=== PATIENT | male | born 1945 | race Caucasian/White ===

== ENCOUNTER → 2019-03-21 | Outpatient (CLI) | payer MEDICARE, OTHER ==
--- NOTE | 2019-04-09 09:06 | PATH ---
[address] [address] PATHOLOGY RPT PROCEDURE Name: JAMAR BRYAN DAYANARA Room: [facility] JENY Nowak#: [id number] Admission: 03/21/19 Date of : 41 Discharge: Report #: [id number] Path Case #: [id number] [facility] Accession Number: [id number] . 01 Material submitted: . lymph node - RIGHT CERVICAL LYMPH NODE MID NECK. Modifiers: right, mid, neck . 01 Clinician provided ICD-10: C44.42:C82.91 . 01 Clinical history: . 2.25 x 2.0 x 1.34 cm Separate specimen submitted for flow cytometric . 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 Please see comment. . Surgical Pathology Cancer Case Summary NON-HODGKIN LYMPHOMA/LYMPHOID NEOPLASMS: Biopsy . Specimen ___ Lymph node Procedure ___ Biopsy Tumor Site ___ Lymph node Specify site: Right cervical . Histologic Type Mature B-Cell Neoplasms ___ Follicular lymphoma with large B-cell lymphoma . Immunophenotyping ___ Performed, see separate report: Flow cytometry findings [facility], specimen ID [id number] ___ Performed Specify method and results: Immunohistochemical stains, please see comment + Cytogenetic Studies + ___ Not performed + Molecular Genetic Studies + ___ Not performed (ASHLEY/becky; 03/26/19) . [place] [address] PATHOLOGY RPT PROCEDURE Name: JAMAR BRYAN DAYANARA Room: [facility]#: [id number] Admission: 03/21/19 Date of : 41 Discharge: Report #: [id number] Path Case #: [id number] Special studies report received from [facility], [address] [place] [address], [facility] [address], [place], [address], on case [id number], labeled with their number [id number], dated 03/24/2019. . Flow Cytometry: Hematologic Neoplasia Assessment . Clinical History Differentiate low grade lymphoma from squamous cell cancer. History of follicular lymphoma of lymph nodes of neck . Indication for Study Evaluation for lymphoma . Specimen Lymph Node, Right cervical . Viability 75% (7AAD exclusion) . Interpretation Lymph Node, Right cervical: CD10+ monotypic (clonal) B-cell population (25% of sample) with increased cell size (see comments) . Comments The flow cytometry results are consistent with a B-cell lymphoma with features of germinal center/follicular origin and are most typical of large B-cell lymphoma or follicular lymphoma. If needed, chromosome analysis and/or FISH testing (IGH/BCL2, BCL6, and MYC) are available. Correlation with all available clinical, laboratory, and morphologic data is necessary for further classification of this process. . Populations Analyzed Abnormal B-cells: 25% Scatter properties compatible with increased cell size, cells characterized as: CD45+, CD19+, CD20+, CD5-, CD10+, CD23-, FMC7+, CD30-, CD43-, CD38+, HLA DR+, sIg lambda+ Remaining 44% B-cells: 0.3%, polytypic/polyclonal sIg light Lymphocytes: chain pattern T-cells: no significant abnormalities of the markers tested CD4:CD8: 6.1 NK cells: 1.9% Granulocytes: 0.3% Present Monocytes/ 0.2% Present Histiocytes: CD45 Negative 30.5% No significant reactivity with the markers Events/Debris: tested (may represent non-hematolymphoid cells, degenerated cells, debris, [place] [address] PATHOLOGY RPT PROCEDURE Name: JAMAR BRYAN DAYANARA Room: [facility]#: [id number] Admission: 03/21/19 Date of : 41 Discharge: Report #: [id number] Path Case #: [id number] cells, etc.) . Morphologic Evaluation A slide was reviewed for vice president quality purposes only. . Specimen Description Total Cell Yield: 2.14X10 and 6 . Reagent(s) Used CD2, CD3, CD4, CD5, CD7, CD8, CD10, CD11b, CD19, CD20, CD23, CD30, CD38, CD43, CD45, CD56, CD57, FMC-7, HLA-DR, kappa, lambda . at [facility]. Amaya Dumont MD Pathologist . . Intended Use Flow cytometry is optimally used to immunophenotypically characterize abnormal populations when they are detected. Negative flow cytometry results do not exclude lymphoma or neoplasia. Possible false negative flow cytometry results may occur in, but are not limited to, the following: neoplastic cells in Hodgkin lymphoma are not typically adequately represented by routine clinical flow cytometry; neoplastic cells may be lost or inadequately represented due to degeneration, sample processing, sampling artifact, or patchy involvement; plasma cells are typically underrepresented by flow cytometry; immature cells/blasts may be underrepresented due to hemodilution; myeloproliferative disorders and low grade myelodysplasia may not have immunophenotypic abnormalities or increased blasts. Correlation with all available clinical, laboratory, and morphologic data is always necessary to assess for the possibility of false negative flow cytometry results and to establish a diagnosis. Each marker in this analysis was used to assess for potential antigenic abnormalities or to evaluate detected abnormalities. . Disclaimer(s) This test was performed at [facility]. at [address] [place] [address], [id number] - [employer]: Immanuel Doss MD. [employer] is a business unit of [facility]., a wholly-owned subsidiary of [employer]. . Any image or images that accompany this report are sales utility representative images only and should not be used to render a diagnosis. . This test was developed and its performance characteristics determined by [facility]. It has not been cleared [place] [address] PATHOLOGY RPT PROCEDURE Name: JAMAR BRYAN DAYANARA Room: [facility] Kash#: [id number] Admission: 03/21/19 Date of : 41 Discharge: Report #: [id number] Path Case #: [id number] Drug Administration (FDA). The FDA has determined that such clearance or approval is not necessary. . For inquiries, the physician may contact Lab: [phone] . A complete copy of the report is on file. . Professional services performed by [facility]. at [address], [place] [address]. Technical services performed by [facility]. at [address], [place] [address]. . (RANDA:am 03/26/2019) [place] 03/26/2019 2246 Local . 02 Comment: Examination of the right cervical lymph node needle core biopsy shows neoplastic follicles containing centrocytes and centroblasts (areas with more than 15 per high power field). Focal area of predominantly large neoplastic lymphoid cells is also noted. Immunophenotypic studies by flow cytometry reveal CD10 positive monotypic (clonal) B-cell population with increased cell size (please see separate flow cytometry from [facility], specimen ID [id number]). To further characterize the lymphoma cells in a tissue architectural context, immunohistochemical stains are performed with appropriate controls: . (Block A1) CD20 - Positive CD10 - Positive BCL-6 - Positive BCL-2 - Positive CD3 - Highlights T-lymphoid cells CD5 - Highlights T-lymphoid cells BCL-1 - Negative MUM-1 - Negative Ki-67 - Approximately 30-40% proliferation fraction . Based on the morphology, immunohistochemical staining pattern and flow cytometry these findings are consistent with involvement by follicular lymphoma, grade 3a/b, diffuse and follicular with focal large B-cell lymphoma (5%) in this biopsy. The patient's previous history of follicular lymphoma is noted. The present biopsy suggests a focal area of higher grade follicular lymphoma/large B-cell lymphoma. Correlation with clinical findings is recommended. FISH for aggressive B cell lymphoma is pending and an addendum report will be submitted separately. . Preliminary findings were discussed with Dr. Ralph [place] [address] PATHOLOGY RPT PROCEDURE Name: JAMAR BRYAN DAYANARA Room: [facility]#: [id number] Admission: 03/21/19 Date of : 41 Discharge: Report #: [id number] Path Case #: [id number] 03/22/19 at 1045. (JMQ/db; 03/26/19) . [place]: Dr. Aletha Pascual . 02 Addendum: . Special studies report received from [facility], [address] [place] [address], [address], [place], [address], on case [id number], labeled with their number [id number], dated 04/03/2019. . Fluorescence in situ Hybridization (FISH) Report [employer] Analysis . RESULT: No assay specific abnormalities detected by Aggressive B-cell Lymphoma FISH panel . Specimen Type: Tissue, Right Cervical Lymph Node . Indication for Study: Follicular lymphoma, Diffuse large B-cell Lymphoma. . INTERPRETATION: Fluorescence in situ hybridization (FISH) analysis was performed on this patient's specimen using DNA probes for Aggressive B-cell Lymphoma panel. One hundred interphase nuclei were examined for each probe and the signal patterns did not reveal any assay specific abnormalities. Based on the performance characteristics established on this assay, all test values were within the normal reference range. . Genetic changes other than those assayed here cannot be ruled out on the basis of this testing. Correlation with cytogenetic, clinical and pathological findings is suggested for a complete interpretation of the results. . The following [employer] FISH analysis was performed on this patient's specimen: Probe Detection Parameters Result ISCN BCL2 (18q21) Detects a rearrangement Not Detected nuc danna(5'BCL2, of the BCL2 gene 3'BCL2)x2(5'BCL2 con 3'BCL2x2)(100) MYC (8q24) Detects a rearrangement Not Detected nuc danna(5'MYC,3'MYC) of the MYC gene x2(5'MYC con 3'MYCx2) (100) BCL6 (3q27) Detects a rearrangement Not Detected nuc danna(5'BCL6,3'BCL6) of the BCL6 gene x2(5'BCL6 con 3'BCL6x2)(100) . at [employer] Shemar Maguire, Ph.D., [place] [address] PATHOLOGY RPT PROCEDURE Name: JAMAR BRYAN DAYANARA Room: [facility] JENY Nowak#: [id number] Admission: 03/21/19 Date of : 41 Discharge: Report #: [id number] Path Case #: [id number] Director of Cytogenetics and Molecular Oncology . Methodology: The patient specimen is processed onto a glass slide. Fluorescent DNA probe(s) is(are) applied to the cells on the slide under conditions of denaturation followed by hybridization. Stringency washes are applied and the slide is subsequently counterstained. A minimum of 100 interphase nuclei are analyzed unless otherwise indicated above. . Intended Use: This assay is considered qualitative and is not intended to be used as a measure of quantitative comparison. . Disclaimer This Test was performed by [facility]. at [address] [place] [address]. [facility] is a business unit of [facility] a wholly-owned subsidiary of [employer]. . . Any images(s) that accompany this report is/are a sales utility representative image(s) only and should not be used to render a diagnosis. . This test was developed and its performance determined by [facility]. It has not been cleared or approved by the Food and Drug Administration. . A complete copy of the report is on file. . Professional services performed by [facility]. at [address] [place] [address]. Technical services performed by [facility]. at [address] [place] [address]. . (JMQ:amj 04/04/2019) . AZJ/04/04/2019 Addendum Electronically Signed by Michelle Mclaughlin MD ([facility]) . 02 Electronically signed: . Michelle Mclaughlin MD, Pathologist NPI- [id number] . 01 Gross description: . The specimen is received in formalin, labeled "Jamar Bryan, right cervical lymph node", are two needle cores and its fragments measuring 1.3 x 0.2 x 0.1 cm in aggregate. The specimen is entirely submitted in A1-A3. Also received is a RPMI tube labeled with patient name and "right [address] [place] [address] PATHOLOGY RPT PROCEDURE Name: JAMAR BRYAN DAYANARA Room: [facility]#: [id number] Admission: 03/21/19 Date of : 41 Discharge: Report #: [id number] Path Case #: [id number] cervical lymph node", this is sent for flow cytometry studies. ([facility]; 03/21/2019) [facility] 03/22/20192026 Local . 02 Pathologist provided ICD-10: C82.81, C44.42 . 02 CPT . 805771, A01329, D56410, 534529 Performed at: 01 [facility] [address] [facility] [address], [place], [place] [id number] MD Jerald Fan MD Phone: [phone] Performed at: 02 [facility] [address] [address], [place] [id number] MD Michelle Mclaughlin MD Phone: [phone]
== END | disposition home or self-care (01) ==
LOC: M.ULTRA 10:40
DX: R59.0 Localized enlarged lymph nodes (principal); C83.31 Diffuse large B-cell lymphoma, lymph nodes of head, face, and neck; C82.11 Follicular lymphoma grade II, lymph nodes of head, face, and neck